=== PATIENT | female | born 1940 | race Hispanic/Latino ===

== ENCOUNTER 2018-05-07 10:52 | Emergency (ER) | payer MEDICARE, OTHER ==
[2018-05-07 11:11] VITALS: BMI 21.9
[2018-05-07 11:17] VITALS: BP 165/87; PULSE 69; RESP 18; TEMP 98; O2SAT 100
--- NOTE | 2018-05-07 11:20 | ED PDOC ---
Arrival/HPI - General Chief Complaint: Trauma Time Seen by Provider: 05/07/18 11:08 Historian: Patient - History of Present Illness Narrative History of Present Illness (Text): 05/07/18 11:19 Patient is a 77 year old female whose past medical history includes rheumatoid arthritis, and hypothyroidism, who presents to the emergency department for evaluation s/p mechanical fall. Patient reports that she was "running across the street" when she slipped and fell. She admits to hitting her head but denies losing consciousness. Patient states that she has a mild headache and was able to ambulate after the fall. Of note patient states her last tetanus shot was less than 5 years ago. Patient denies fevers, chills, cough, shortness of breath, chest pain, dyspnea on exertion, abdominal pain, nausea, vomiting, diarrhea, urinary changes, back pain, neck pain, dizziness, or any other complaint. Time/Duration: Prior to Arrival Symptom Onset: Sudden Context: Street Past Medical History - Provider Review Nursing Documentation Reviewed: Yes - Infectious Disease Hx of Infectious Diseases: None - Endocrine/Metabolic Hx Hypothyroidism: Yes - Musculoskeletal/Rheumatological Hx Arthritis: Yes Hx Osteoporosis: Yes Hx Rheumatoid Arthritis: Yes - Psychiatric Hx Substance Use: No - Surgical History Other/Comment: Junaid knee sx. shoulder sx - Anesthesia Hx Anesthesia: Yes Hx Anesthesia Reactions: No Hx Malignant Hyperthermia: No Family/Social History - Physician Review Nursing Documentation Reviewed: Yes Family/Social History: No Known Family HX Smoking Status: Never Smoked Hx Alcohol Use: No Hx Substance Use: No Allergies/Home Meds Allergies/Adverse Reactions: Allergies ciprofloxacin [From Cipro] Allergy (Verified 05/07/18 11:11) NAUSEA Home Medications: Home Meds Medication Instructions Recorded Confirmed Methotrexate 6 tab PO Q7D 05/07/18 05/07/18 RX: Etodolac [Etodolac ER] 1 tab PO DAILY 05/07/18 05/07/18 RX: Levothyroxine [Synthroid] 1 tab PO DAILY 05/07/18 05/07/18 RX: Oxybutynin [Ditropan Tab] 10 mg PO DAILY 05/07/18 05/07/18 Review of Systems - Physician Review All systems were reviewed & negative as marked: Yes - Review of Systems Constitutional: absent: Fevers, Night Sweats Respiratory: absent: SOB, Cough Cardiovascular: absent: Chest Pain, GARCIA, Syncope Gastrointestinal: absent: Abdominal Pain, Diarrhea, Nausea, Vomiting Genitourinary Female: absent: Urine Output Changes Musculoskeletal: absent: Back Pain, Neck Pain Neurological: Headache. absent: Dizziness Physical Exam Vital Signs Reviewed: Yes Vital Signs Temp Pulse Resp BP Pulse Ox 05/07/18 11:17 98.0 F 69 18 165/87 H 100 Temperature: Afebrile Blood Pressure: Hypertensive Pulse: Regular Respiratory Rate: Normal Appearance: Positive for: Well-Appearing Mental Status: Positive for: Alert and Oriented X 3 - Systems Exam Head: Present: Atraumatic, Normocephalic Pupils: Present: PERRL Extroacular Muscles: Present: EOMI Conjunctiva: Present: Normal Mouth: Present: Moist Mucous Membranes Neck: Present: Normal Range of Motion Respiratory/Chest: Present: Clear to Auscultation, Good Air Exchange. No: Respiratory Distress, Accessory Muscle Use Cardiovascular: Present: Regular Rate and Rhythm, Normal S1, S2. No: Murmurs Abdomen: No: Tenderness, Distention, Peritoneal Signs Back: Present: Normal Inspection Upper Extremity: Present: Normal Inspection. No: Cyanosis, Edema Lower Extremity: Present: Normal Inspection. No: Edema Neurological: Present: GCS=15, CN II-XII Intact, Speech Normal Skin: Present: Warm, Dry, Normal Color, Abrasion (multiple abrasions to nose, chin and knees). No: Rashes Psychiatric: Present: Alert, Oriented x 3, Normal Insight, Normal Concentration Medical Decision Making ED Course and Treatment: 05/07/18 11:20 Impression: 77 year old patient who presents to the emergency department with abrasions secondary to mechanical fall. Differential Diagnosis included but are not limited to: Plan: -- Maxillofacial CT without Contrast -- Head CT without contrast -- Tylenol -- Bilateral knees X-ray -- Reassess and disposition Prior Visits: Notes and results from previous visits were reviewed. Progress Notes: 05/07/18 17:[address] neg tdap utd advise outpt fu - RAD Interpretation Narrative RAD Interpretations (Text): 05/07/18 12:[address] without Contrast: Dictator : Dale Woods MD FINDINGS: HEMORRHAGE: No intracranial hemorrhage. BRAIN: No mass effect or edema. No atrophy or chronic microvascular ischemic changes. VENTRICLES: Unremarkable. No hydrocephalus. CALVARIUM: Unremarkable. PARANASAL SINUSES: Unremarkable as visualized. No significant inflammatory changes. MASTOID AIR CELLS: Unremarkable as visualized. No inflammatory changes. OTHER FINDINGS: None. IMPRESSION: No acute findings 05/07/[address] without contrast: Dictator : Dale Woods MD FINDINGS: NASAL BONES: Unremarkable. ORBITS: Unremarkable. PARANASAL SINUSES/ MASTOIDS: Clear. MAXILLA: Unremarkable. MANDIBLE/ TEMPOROMANDIBULAR JOINTS: Unremarkable. SKULL BASE: Unremarkable. TEMPORAL BONES: Middle ears and mastoid grossly unremarkable. OTHER FINDINGS: None. IMPRESSION: Unremarkable non contrast enhanced CT of the maxillofacial bones. 05/07/18 Knee X-ray: Dictator : Jamie Lilly MD FINDINGS: BONES: Right Knee: No acute fracture. Satisfactory position of right TKA components Left Knee: No acute fracture. Satisfactory position of left TKA components JOINTS: Right Knee: Unremarkable Left knee: Unremarkable SOFT TISSUES: Right Knee: Normal. Left Knee: Normal. JOINT EFFUSION: Right Knee: None. Left Knee: None. OTHER FINDINGS: None. IMPRESSION: No acute findings related to/accounting for the clinical presentation. Concordant results with the preliminary interpretation rendered by the emergency department physician\\PA at the conclusion of the procedure. Radiology Orders: 05/07/18 11:13 HEAD W/O CONTRAST [CT] Stat MAXILLOFACIAL W/O CONTRAST [CT] Stat KNEES BILATERAL [RAD] Stat Termite Helper: Radiologist - Medication Orders Current Medication Orders: Discontinued Medications Acetaminophen (Tylenol 325mg Tab) 975 mg PO STAT STA Stop: 05/07/18 11:15 - Scribe Statement The provider has reviewed the documentation as recorded by the Scribcaitlyn Biggs Provider Scribe Attestation: All medical record entries made by the Scribe were at my direction and personally dictated by me. I have reviewed the chart and agree that the record accurately reflects my personal performance of the history, physical exam, me dical decision making, and the department course for this patient. I have also personally directed, reviewed, and agree with the discharge instructions and disposition. Disposition/Present on Arrival - Present on Arrival Any Indicators Present on Arrival: No History of DVT/PE: No History of Uncontrolled Diabetes: No Urinary Catheter: No History of Decub. Ulcer: No History Surgical Site Infection Following: None - Disposition Have Diagnosis and Disposition been Completed?: Yes Diagnosis: Fall, Head injury, Knee sprain Disposition: HOME/ ROUTINE Disposition Time: 12:00 Condition: STABLE Discharge Instructions (ExitCare): Preventing Falls in the Older Adult, Knee Sprain (DC), Minor Head Injury Additional Instructions: return to er with worsening symptoms or concerns. please follow up with your doctor/clinic. Referrals: [facility] [Outside] - Follow up with primary [facility] at [facility] [place] [Outside] - Follow up with primary [facility] at [place] [Outside] - Follow up with primary Forms: [employer] ([place]i)
[2018-05-07] MEDS ORDERED: Bacitracin 500 Units/gm Oint Foilpak UD ONE (11:29)
--- NOTE | 2018-05-07 12:29 | CT ---
Date of service: 05/07/2018 PROCEDURE: CT HEAD WITHOUT CONTRAST. HISTORY: trauma COMPARISON: None available. TECHNIQUE: Axial computed tomography images were obtained through the head/brain without intravenous contrast. Radiation dose: Total exam DLP = 801 mGy-cm. This CT exam was performed using one or more of the following dose reduction techniques: Automated exposure control, adjustment of the mA and/or kV according to patient size, and/or use of iterative reconstruction technique. FINDINGS: HEMORRHAGE: No intracranial hemorrhage. BRAIN: No mass effect or edema. No atrophy or chronic microvascular ischemic changes. VENTRICLES: Unremarkable. No hydrocephalus. CALVARIUM: Unremarkable. PARANASAL SINUSES: Unremarkable as visualized. No significant inflammatory changes. MASTOID AIR CELLS: Unremarkable as visualized. No inflammatory changes. OTHER FINDINGS: None. IMPRESSION: No acute findings
--- NOTE | 2018-05-07 12:33 | CT ---
Date of service: 05/07/2018 PROCEDURE: CT MAXILLOFACIAL BONES WITHOUT CONTRAST HISTORY: trauma COMPARISON: None available. TECHNIQUE: Contiguous axial CT images of the maxillofacial bones were obtained. Coronal and sagittal reformats were generated. Radiation dose: Total exam DLP = 687.83 mGy-cm. This CT exam was performed using one or more of the following dose reduction techniques: Automated exposure control, adjustment of the mA and/or kV according to patient size, and/or use of iterative reconstruction technique. FINDINGS: NASAL BONES: Unremarkable. ORBITS: Unremarkable. PARANASAL SINUSES/ MASTOIDS: Clear. MAXILLA: Unremarkable. MANDIBLE/ TEMPOROMANDIBULAR JOINTS: Unremarkable. SKULL BASE: Unremarkable. TEMPORAL BONES: Middle ears and mastoid grossly unremarkable. OTHER FINDINGS: None. IMPRESSION: Unremarkable non contrast enhanced CT of the maxillofacial bones.
--- NOTE | 2018-05-07 13:40 | RAD ---
Date of service: 05/07/2018 PROCEDURE: Bilateral Knee Radiographs. HISTORY: trauma COMPARISON: None. FINDINGS: BONES: Right Knee: No acute fracture. Satisfactory position of right TKA components Left Knee: No acute fracture. Satisfactory position of left TKA components JOINTS: Right Knee: Unremarkable Left knee: Unremarkable SOFT TISSUES: Right Knee: Normal. Left Knee: Normal. JOINT EFFUSION: Right Knee: None. Left Knee: None. OTHER FINDINGS: None. IMPRESSION: No acute findings related to/accounting for the clinical presentation. Concordant results with the preliminary interpretation rendered by the emergency department physician procedure.
== END 2018-05-07 12:54 | disposition home or self-care (01) ==
LOC: ED 10:52
DX: S09.90XA Unspecified injury of head, initial encounter (principal); S83.92XA Sprain of unspecified site of left knee, initial encounter; S83.91XA Sprain of unspecified site of right knee, initial encounter; W01.0XXA Fall on same level from slipping, tripping and stumbling without subsequent striking against object, initial encounter; Y93.02 Activity, running; Y92.410 Unspecified street and highway as the place of occurrence of the external cause